=== PATIENT | female | born 1960 | race Caucasian/White ===

== ENCOUNTER 2021-12-12 11:09 | Inpatient (IN) | payer OTHER ==
[~2021-12-12] VITALS: Ht 172.7 cm; Wt 71.4 kg
[~2021-12-12 11:09] MED LIST: BILBERRY100 MG PO; BIOTIN5000 MCG PO; CALCITRIOL0.5 MCG PO; CALCIUM ADULT1 EACH PO; CENTRUM SILVER1 EAC4 PO; COQ-10100 MG PO; FLAX SEED OIL1000 MG PO; LOVAZA1 GM PO; LUTEIN20 MG PO; MAGNESIUM400 MG PO; MOVE FREE JOIN1 EACH PO; NAPROXEN500 MG PO; NEURONTIN300 MG PO; OYSTER SHELL C500 MG PO; PLAQUENIL200 MG PO; UNITHROID125 MCG PO; VITAMIN E100 UNIT PO
[2021-12-12 13:33] LABS: BASOPHIL 0.6 % (0-2); EOSINOPHIL 2.1 % (0-5); HCT 30.3 % (37.0-47.0); HGB 9.9 g/dl (12.5-16.0); LYMPHOCYTE 26.6 % (15-48); MCH 32.9 pg (25.0-31.0); MCHC 32.7 g/dL (32.0-36.0); MCV 100.7 fL (78.0-100.0); MONOCYTE 8.3 % (0-12); MPV 10.9 fL (6.0-9.5); NEUTROPHIL 62.1 % (41-80); NRBC 0; PLT 250 K/uL (150-400); RBC 3.01 M/uL (4.20-5.40); RDW 12.7 % (11.5-14.0); WBC 6.3 K/uL (4.0-10.5)
[2021-12-12 13:33] LABS: BILIRUBIN NEGATIVE (NEGATIVE); BLOOD NEGATIVE Ery/uL (NEGATIVE); CLARITY CLEAR (CLEAR); COLOR YELLOW (YELLOW); GLUCOSE (U) TRACE mg/dL (NORMAL); LEUKOCYTES 1+ Leu/uL (NEGATIVE); NITRITE NEGATIVE (NEGATIVE); PROTEIN NEGATIVE (NEGATIVE); SPECIFIC GRAVITY 1.015 (1.001-1.030); UROBILINOGEN 0.2 mg/dL (0.2-1.0); pH 6.5 (5.0-9.0)
[2021-12-12 13:44] LABS: ALBUMIN 3.7 g/dL (3.4-5.0); BILIRUBIN - TOTAL 0.3 mg/dL (0.2-1.0); BUN/CREAT RATIO (CALC) 14.4 RATIO; CREATININE 3.05 mg/dL (0.51-0.95); GLOBULIN (CALCULATION) 4.2 g/dL; POTASSIUM 3.8 mmol/L (3.5-5.1); TOTAL PROTEIN 7.9 g/dL (6.4-8.2)
[2021-12-12 13:50] LABS: BACTERIA TRACE; SQUAMOUS EPITHELIAL CELLS RARE
[2021-12-12 21:20] LABS: BUN/CREAT RATIO (CALC) 14.5 RATIO; CREATININE 2.62 mg/dL (0.51-0.95); POTASSIUM 3.2 mmol/L (3.5-5.1)
[2021-12-12] MEDS ORDERED: ADVIL200 M1 PO (22:10)
[2021-12-12] MEDS ORDERED: MAG-OXIDE 400M400 MG PO (22:10)
[2021-12-12] MEDS ORDERED: BIOTIN5000 MC1 PO (22:11)
[2021-12-12] MEDS ORDERED: CENTRUM SILVER1 EAC4 PO (22:11)
[2021-12-12] MEDS ORDERED: LOVAZA1 GM PO (22:12)
[2021-12-12] MEDS ORDERED: FLAXSEED OIL1000 M1 PO (22:12)
[2021-12-12] MEDS ORDERED: MOVE FREE JOIN1 EACH PO (22:13)
[2021-12-12] MEDS ORDERED: LUTEIN20 MG PO (22:13)
[2021-12-12] MEDS ORDERED: VITAMIN E180 M1 PO (22:13)
[2021-12-12] MEDS ORDERED: ROCALTROL 0.0.25 MCG PO (22:14)
[2021-12-12] MEDS ORDERED: BILBERRY100 MG PO (22:14)
[2021-12-12] MEDS ORDERED: OYSTER SHELL C500 MG PO (22:15)
[2021-12-12] MEDS ORDERED: CHEWABLE CALCI1 EACH PO (22:15)
[2021-12-12] MEDS ORDERED: UNITHROID125 MCG PO (22:16)
[2021-12-12] MEDS ORDERED: PLAQUENIL200 MG PO (22:18)
[2021-12-12] MEDS ORDERED: NEURONTIN300 MG PO (22:20)
[2021-12-12] MEDS ORDERED: IRON325 M1 PO (22:20)
[2021-12-12] MEDS ORDERED: ZYRTEC10 M3 PO (22:20)
[2021-12-12] MEDS ORDERED: FLONASE ALLER15.8 ML (22:21)
--- NOTE | 2021-12-13 05:34 | NUR ---
PLACED CALL OUT FOR CONSULT TO NEPHROLOGYCHRISTOPHER. SPOKE TO SANDRA AT THE ANSWERING SERVICE.
[2021-12-13 05:56] LABS: EOSINOPHIL 2.9 % (0-5); HGB 8.3 g/dl (12.5-16.0); LYMPHOCYTE 29.4 % (15-48); MCH 32.4 pg (25.0-31.0); MCHC 31.9 g/dL (32.0-36.0); MCV 101.6 fL (78.0-100.0); MONOCYTE 9.9 % (0-12); MPV 10.6 fL (6.0-9.5); NEUTROPHIL 56.6 % (41-80); NRBC 0; PLT 198 K/uL (150-400); RBC 2.56 M/uL (4.20-5.40); RDW 12.8 % (11.5-14.0); WBC 4.9 K/uL (4.0-10.5)
[2021-12-13 06:21] LABS: ALBUMIN 2.9 g/dL (3.4-5.0); BILIRUBIN - TOTAL 0.2 mg/dL (0.2-1.0); BUN/CREAT RATIO (CALC) 13.9 RATIO; CREATININE 2.51 mg/dL (0.51-0.95); GLOBULIN (CALCULATION) 2.8 g/dL; PHOSPHORUS 2.8 mg/dL (2.6-4.7); POTASSIUM 4.1 mmol/L (3.5-5.1)
[2021-12-13 06:22] LABS: TOTAL PROTEIN 5.7 g/dL (6.4-8.2)
[2021-12-14 06:57] LABS: BASOPHIL 1.1 % (0-2); EOSINOPHIL 2.9 % (0-5); HCT 24.8 % (37.0-47.0); HGB 7.9 g/dl (12.5-16.0); LYMPHOCYTE 35.1 % (15-48); MCH 32.9 pg (25.0-31.0); MCHC 31.9 g/dL (32.0-36.0); MCV 103.3 fL (78.0-100.0); MONOCYTE 9.3 % (0-12); MPV 10.7 fL (6.0-9.5); NEUTROPHIL 51.3 % (41-80); NRBC 0; PLT 175 K/uL (150-400); RDW 13.1 % (11.5-14.0); RETICULOCYTE COUNT 1.1 % (1.0-2.0); WBC 3.8 K/uL (4.0-10.5)
[2021-12-14 07:22] LABS: BUN/CREAT RATIO (CALC) 10.8 RATIO; CREATININE 2.23 mg/dL (0.51-0.95)
[2021-12-14 12:09] LABS: FOLIC ACID (SERUM) 26.7 ng/mL (8.6-58.9)
== END 2021-12-14 13:55 | disposition home or self-care (01) | DRG 640 ==
LOC: FER 11:09 → FMS 18:14
PROVIDERS: Allergy & Immunology Allergy; Nurse Practitioner; Physician Assistant; ADMIT Internal Medicine
DX: E83.52 Hypercalcemia (principal); N17.0 Acute kidney failure with tubular necrosis; E23.2 Diabetes insipidus; E20.9 Hypoparathyroidism, unspecified; Z20.822 Contact with and (suspected) exposure to COVID-19; Z96.651 Presence of right artificial knee joint; T50.3X5A Adverse effect of electrolytic, caloric and water-balance agents, initial encounter; T45.2X5A Adverse effect of vitamins, initial encounter; E89.0 Postprocedural hypothyroidism; D50.9 Iron deficiency anemia, unspecified; M06.9 Rheumatoid arthritis, unspecified; Z85.850 Personal history of malignant neoplasm of thyroid; Z88.1 Allergy status to other antibiotic agents; Z91.013 Allergy to seafood; Z79.899 Other long term (current) drug therapy
CPT/HCPCS: 36415; 71250; 80048; 80053; 81001; 82607; 82728; 82746; 83090; 83540; 83735; 83880; 84100; 85025; 93005; J1644; J3480; J7030; U0002